=== PATIENT | male | born 1965 | race Hispanic/Latino ===

== ENCOUNTER 2017-07-14 17:04 | Emergency (ER) | payer BC, OTHER ==
[2017-07-14 17:27] VITALS: BP 153/82; PULSE 82; RESP 20; O2SAT 99
[2017-07-14 17:42] VITALS: TEMP 98.1
--- NOTE | 2017-07-14 18:08 | ED PDOC ---
Lower Extremity Pain/Injury Time Seen by Provider: 07/14/17 17:24 Chief Complaint (Nursing): Lower Extremity Problem/Injury Chief Complaint (Provider): Left leg injury History Per: Patient History/Exam Limitations: no limitations Onset/Duration Of Symptoms: Days (x5) Current Symptoms Are (Timing): Still Present Additional Complaint(s): is a 52 y/o male who presents to the ED for evaluation of left leg injury. States that 5 days ago he cut his left leg on the bottom of a metal bed frame, causing a cut. Today he noticed cut was red with pus coming out. States cut is not painful. Denies fever, history of diabetes, and antipyretic use. Reports temperature at home was 100. PMD: None Past Medical History Reviewed: Historical Data, Nursing Documentation, Vital Signs Vital Signs: Last Vital Signs Temp 98.1 F 07/14/17 17:42 Pulse 82 07/14/17 17:25 Resp 20 07/14/17 17:25 BP 153/82 H 07/14/17 17:25 Pulse Ox 99 07/14/17 17:25 - Medical History PMH: Arthritis, Back Problems, Hyperthyroidism (Borderline), Sexually Transmitted Disease (Herpes, HPV) Denies: Seizures (Patient denied) - Surgical History Surgical History: Back Surgery - Family History Family History: States: Unknown Family Hx - Social History Current smoker - smoking cessation education provided: Yes (Heavy) Alcohol: None Drugs: Denies - Immunization History Hx Tetanus Toxoid Vaccination: No Hx Influenza Vaccination: No Hx Pneumococcal Vaccination: No - Home Medications Home Medications: Ambulatory Orders Medication Instructions Recorded Clindamycin [Cleocin] 300 mg PO Q6 #28 cap 04/06/17 Dexilant 60 mg PO DAILY 04/06/17 Ibuprofen [Motrin] 600 mg PO Q6 PRN #20 tab 04/06/17 Lyrica 75 mg PO BID 04/06/17 Topamax 50 mg PO DAILY 04/06/17 Zoloft 50 mg PO HS 04/06/17 tiZANidine 2 mg PO PRN PRN 04/06/17 Clindamycin [Cleocin] 300 mg PO Q6 #28 cap 07/14/17 - Allergies Allergies/Adverse Reactions: Allergies Allergy/AdvReac Type Severity Reaction Status Date / Time Penicillins Allergy Severe SWELLING Verified 04/06/17 21:26 Review of Systems ROS Statement: Except As Marked, All Systems Reviewed And Found Negative Constitutional: Negative for: Fever Skin: Positive for: Lesions (Left leg cut) Physical Exam - Reviewed Nursing Documentation Reviewed: Yes Vital Signs Reviewed: Yes - Physical Exam Appears: Positive for: Well, Non-toxic, No Acute Distress Head Exam: Positive for: ATRAUMATIC, NORMAL INSPECTION, NORMOCEPHALIC Skin: Positive for: Normal Color, Warm, Dry Eye Exam: Positive for: EOMI, Normal appearance, PERRL Neck: Positive for: Normal, Supple Extremity: Positive for: Normal ROM, Other (Left leg with 2 inch linear healing wound with surrounding erythema but no fluctuance, discharge, or tenderness. No streaking.) Neurologic/Psych: Positive for: Alert, Oriented - ECG O2 Sat by Pulse Oximetry: 99 (RA) Pulse Ox Interpretation: Normal Medical Decision Making Medical Decision Making: Repeat temp w/o antipyretics is 98.1 Time: 17:44 Clinical Impression: Cellulitis Upon provider evaluation patient is medically stable, and requires no further treatment in the ED at this time. Patient will be discharged home with Rx for Clindamycin. Counseling was provided and all questions were answered regarding diagnosis and need for follow up with PMD in 2 days for wound check. There is agreement to discharge plan. Return if symptoms persist or worsen. Scribe Attestation: Documented by Madelin Burrell, acting as a scribe for Dao Saha PA-C Provider Scribe Attestation: All medical record entries made by the Scribe were at my direction and personally dictated by me. I have reviewed the chart and agree that the record accurately reflects my personal performance of the history, physical exam, medical decision making, and the department course for this patient. I have also personally directed, reviewed, and agree with the discharge instructions and disposition. Disposition - Clinical Impression Clinical Impression: Cellulitis - Patient ED Disposition Is Patient to be Admitted: No Counseled Patient/Family Regarding: Diagnosis, Need For Followup, Rx Given - Disposition Referrals: [facility] [Outside] Disposition: Routine/Home Disposition Time: 17:44 Condition: STABLE Additional Instructions: FOLLOW UP WITH YOUR PMD in 2 days FOR WOUND CHECK Prescriptions: Clindamycin [Cleocin] 300 mg PO Q6 #28 cap Instructions: Cellulitis (ED) Forms: [employer] (Gambian) Print Language: DUTCH
== END 2017-07-14 17:51 | disposition home or self-care (01) ==
LOC: H.ER 17:04
DX: L03.116 Cellulitis of left lower limb (principal)